=== PATIENT | male | born 1955 | race Caucasian/White ===

== ENCOUNTER → 2018-12-04 14:18 | Outpatient (CLI) | payer MEDICARE, SELFPAY ==
[2018-12-04 13:23] VITALS: BMI 50.5
--- NOTE | 2018-12-04 14:21 | RAD_ITS ---
STUDY: X-RAY CHEST REASON FOR EXAM: Male, 63 years old. Shortness of breath and peripheral edema. TECHNIQUE: PA and lateral views of the chest. COMPARISON: September 25, 2009 FINDINGS: The lungs are hyperexpanded. There is perihilar interstitial thickening present in both lungs. There is no demonstrated pleural abnormality. There is mild cardiac enlargement. Normal mediastinum and cody. There is prominence of the pulmonary hilar arteries with peripheral pulmonary vascular congestion. There is atherosclerotic calcification of the aortic arch with tortuosity. There are diffuse degenerative changes of the visualized thoracic spine. Normal visualized ribs, clavicles, and shoulders. There is no demonstrated abnormality of the visualized soft tissue structures of the upper abdomen. RAD/Chest PA and Lateral IMPRESSION: Cardiomegaly and pulmonary congestion. Electronically Signed: Ying Guerra MD at 10:03 EDT , Service support ,
== END ==
PROVIDERS: Family Provider Internal Medicine; PCP Internal Medicine; Referring Provider Internal Medicine Cardiovascular Disease; Visit Provider Internal Medicine Cardiovascular Disease
DX: R06.02 Shortness of breath (principal); R60.0 Localized edema; R06.01 Orthopnea
CPT/HCPCS: 71046

== ENCOUNTER → 2018-12-25 13:35 | Outpatient (CLI) | payer MEDICARE, SELFPAY ==
[2018-12-04 13:23] VITALS: BMI 50.5
--- NOTE | 2018-12-25 13:40 | ECHOCS_ITS ---
Reason For Study: CHF Procedure This was a 2D Doppler, Color Flow transthoracic echocardiogram. The study was technically limited. The exam was of poor technical quality due to body habitus.. Contrast injection was performed. Very limited apicals. Exam performed in department. Left Ventricle Moderate concentric left ventricular hypertrophy. The estimated ejection fraction is 65 %. Normal diastology for age. No regional wall motion abnormalities noted. Right Ventricle Moderately dilated right ventricle. Normal systolic function. Atria The left atrium is severely enlarged. The right atrium is severely enlarged. Normal atrial septum. Mitral Valve The mitral valve is structurally normal. No prolapse or stenosis seen. Tricuspid Valve Normal tricuspid valve. Mild (1+) tricuspid valve insufficiency. Right ventricular systolic pressure estimated to be 61 mmHg. Severe pulmonary hypertension. Aortic Valve Normal aortic valve. Trisinus/trileaflet aortic valve. Pulmonic Valve The pulmonic valve is not well visualized. Great Vessels Normal aortic root. Normal arch. The inferior vena cava is dilated. Inferior vena cava collapse with sniff. Pericardium/Pleural No pericardial effusion. Medication 22 gauge I.V. with prn adaptor inserted into left arm. Diluted definity 8.0ml given slow IV push to enhance endocardial definition. MMode/2D Measurements & Calculations LVIDd: 5.2 cm IVSd: 3.3 cm Ao root diam: 4.5 cm LVIDs: 3.3 cm LVPWd: 1.4 cm RVDd: 4.9 cm FS: 35.8 % LAV(MOD-bp): 93.3 ml LA A4 area: 31.4 cm2 LA dimension(2D): 4.9 cm LAV(MOD-bp) Indexed: 35.8 ml/m2 LAV(MOD-sp2): 62.3 ml LAV(MOD-sp4): 118.8 ml RA A4 area: 27.6 cm2 Time Measurements MV dec time: 0.19 sec Doppler Measurements & Calculations MV E max jean-claude: 121.9 cm/sec Lat Peak E' Jean-Claude: 8.7 cm/sec Med Peak E' Jean-Claude: 6.5 cm/sec MV A max jean-claude: 70.9 cm/sec E/E' lat: 14.0 E/E' med: 18.7 MV E/A: 1.7 Ao V2 max: 126.4 cm/sec LV V1 max: 94.7 cm/sec PA V2 max: 97.1 cm/sec Ao max P.4 mmHg LV V1 max P.6 mmHg TR max jean-claude: 327.1 cm/sec TR max P.5 mmHg Interpretation Summary Moderate concentric left ventricular hypertrophy. The estimated ejection fraction is 65 %. Normal diastology for age. Moderately dilated right ventricle. The left atrium is severely enlarged. The right atrium is severely enlarged. Mild (1+) tricuspid valve insufficiency. Right ventricular systolic pressure estimated to be 61 mmHg. Severe pulmonary hypertension. The study was technically difficult. There is no comparison study available. Contrast injection was performed. Ordering Physician: Rivas Muñoz Referring Physician: JEZ RAPHAEL Performed By: Izzy Stephens, OBDULIA, RVT
== END ==
PROVIDERS: Family Provider Internal Medicine; PCP Internal Medicine; Referring Provider Internal Medicine Cardiovascular Disease; Visit Provider Internal Medicine Cardiovascular Disease
DX: I11.0 Hypertensive heart disease with heart failure (principal); I50.9 Heart failure, unspecified; R63.5 Abnormal weight gain; R60.9 Edema, unspecified; R06.01 Orthopnea; R60.0 Localized edema; R06.02 Shortness of breath; I48.0 Paroxysmal atrial fibrillation
CPT/HCPCS: 93306; Q9957; A4216; C8929

== ENCOUNTER → 2019-01-09 09:20 | Outpatient (CLI) | payer MEDICARE, SELFPAY ==
[2018-12-04 13:23] VITALS: BMI 50.5
--- NOTE | 2019-01-09 09:22 | STEWCON_ITS ---
Reason For Study: CHF Stress Results Protocol: Dobutamine with definity Maximum Predicted HR: 155 bpm Target HR: 132 bpm % Maximum Predicted HR: 95 % DurationHeart Rate Stage (mm:ss) (bpm) BP Dose Comment BASELINE 81 148/76 3 CC DEFINITY GIVEN STAGE 1 4:02 84 152/6010.001 CC DEFINITY STAGE 2 3:00 106 160/7020.00 STAGE 3 3:00 117 170/6030.000.25 MG ATROPINE GIVEN STAGE 4 2:24 148 / 40.002 CC DEFINITY RECOVERY 105 150/58 2 CC DEFINITY Stress Duration: 12:26 mm:ss Maximum Stress HR: 148 bpm Baseline Echocardiogram Findings The estimated ejection fraction is 65 %. Stress Echo Wall motion Data Resting WM Intermediate WM Stress WM Resting Wall Motion Wall Motion Stress No regional wall motion No regional wall motion abnormalities noted. abnormalities noted. EKG Data The baseline ECG displays normal sinus rhythm. The patient was titrated from 10 mcg to a maximum of 40 mcg of dobutamine during the stress. The maximum heart rate attained was 164 beats per minute. This was 105% of maximum predicted heart rate. At peak infusion, upsloping ST changes only were noted, which did not meet the criteria for ischemia. No clinical angina was noted. Interpretation Summary The estimated ejection fraction is 65 %. Normal, adequate, dobutamine echocardiogram. Negative for ischemia by EKG and echocardiographic criteria. No anginal symptoms noted. Frequent PACs, rare PVCs and rare burst of atrial fibrillation during dobutamine which is a nonspecific finding. Arrhythmia self terminated back to normal sinus rhythm. Final LVEF is 75%. Test terminated due to the attainment of target heart rate. Decreased sensitivity due to poor echo windows requiring Definity agent. Patient taught procedure well. No complications. The study was technically difficult. Contrast injection was performed. Ordering Physician: Rivas Muñoz Referring Physician: Rivas Muñoz Performed By: Tamar Mederos RDCS
== END ==
PROVIDERS: Family Provider Internal Medicine; PCP Internal Medicine; Referring Provider Internal Medicine Cardiovascular Disease; Visit Provider Internal Medicine Cardiovascular Disease
DX: I48.0 Paroxysmal atrial fibrillation (principal); I77.819 Aortic ectasia, unspecified site; E78.5 Hyperlipidemia, unspecified; I11.9 Hypertensive heart disease without heart failure; R06.02 Shortness of breath; R60.0 Localized edema; R60.9 Edema, unspecified; R63.5 Abnormal weight gain
CPT/HCPCS: 93017; 93350; J7040; Q9957; A4216; C8928